=== PATIENT | female | born 1975 | race Caucasian/White ===

== ENCOUNTER → 2021-04-16 | Outpatient (CLI) ==
[~2021-04-16] MED LIST: BRIN10TA4 PO; DULA3PEN SC; LANTINJ4 SC; LEVO50TA5 PO; METH2.5T48 PO; NOVOINJ3 SC; TIZA2TA PO; TRAZ-252 PO
== END ==
LOC: M LABSMTC 09:01 → EDUNIT# 09:35
PROVIDERS: ATTEND Anesthesiology
DX: Z01.818 Encounter for other preprocedural examination (principal); Z11.52 Encounter for screening for COVID-19